=== PATIENT | female | born 1960 | race African-American/Black ===

== ENCOUNTER 2016-10-29 17:43 | Inpatient (IN) | payer BC, MEDICARE ==
[~2016-10-29] VITALS: Ht 162.6 cm; Wt 56.0 kg
--- NOTE | ~2016-10-29 | DS ---
ADMIT: 10/29/2016 RM/LOC: 412 [facility] MR#: [id number] [id number] [facility] [address] [place] [id number] RCIHIE ANTHONY [address] [place] [address] Discharge Summary SEX: F AGE: 56 : 1960 ADMISSION DATE: 10/29/2016 DISCHARGE DATE: 10/30/2016 DISCHARGE DIAGNOSES: 1. Persistent nausea and vomiting. 2. Status post recent kidney transplant. 3. Asthma. 4. Hypertension. 5. Insulin-dependent diabetes mellitus. 6. History of end-stage renal disease. 7. Coronary artery disease. 8. History of gastroparesis. 9. Inflammatory arthritis. 10.Osteoporosis. 11.Depression. HOSPITAL COURSE: The patient was admitted with persistent nausea and vomiting. She actually received some IV fluids and with her IV fluids her nausea did not improve. She was given which IV medications she could be given but otherwise the rest of her medications were given p.o., but she was unable to keep them down. I did contact her transplant video intern, Dr. Hodges, at the [facility] and they requested transfer of the patient. We also gave her a larger dose of IV Solu-Medrol. Her blood sugars were monitored. Overall, the patient was stable throughout her hospital stay but with concern for the persistent nausea it was felt she would be better served being transferred to where she did received her antirejection medications IV. Otherwise, her transfer medications were well summarized in the chart. Allie Anthony MD/ glenn JOB #: [id number] CC: Joss Mcqueen MD, Attending Physician Joss Mcqueen MD, Family Physician
[~2016-10-29 17:43] MED LIST: ASA CHILDREN'S81 MG PO; CARVEDILOL25 MG PO; COLACE-DPS100 MG PO; COMPAZINE DPS5 MG PO; DIFLUCAN DPS200 MG PO; DULERA 100/58.8 GM IH; EXTRANEAL ICO2500 ML; FLONASE 0.05% D16 GM NS; HUMALOG100 UNIT/1 SQ; HUMALOG100 UNIT/3 SQ; KLOR-CON M2020 ME1 PO; LASIX DPS40 MG PO; LEVEMIR100 UNIT/1 SQ; LIPITOR DPS40 MG PO; LIPITOR80 MG PO; NORVASC5 MG PO; PROAIR RESPICL90 MCG IH; REGLAN DPS5 MG PO; SENOKOT DPS8.6 MG PO; TYLENOL DPS325 MG PO; WELLBUTRIN SR150 M1 PO; ZESTRIL DPS20 MG PO; [UNRECOGNIZED DRUG - OTHER] TP; [UNRECOGNIZED DRUG - OTHER] TP
--- NOTE | 2016-10-30 01:41 | ER ---
ADMIT: 10/29/2016 RM/LOC: 412 [facility] MR#: [id number] [address] [address] RICHIE BAKER [address] [place] [address] Emergency Room Report SEX: F AGE: 56 : 1960 DATE: 10/29/2016 CHIEF COMPLAINT: Vomiting. HISTORY OF PRESENT ILLNESS: The patient is a 56-year-old, type 1 diabetic female status post recent kidney transplant at [facility], October 22, discharged on the complaining of acute onset nausea and vomiting in the past 12 hours with at least 13 episodes of vomiting, still making urine. No diarrhea, fevers, chills, or cough. PAST MEDICAL HISTORY: ALLERGIES: PHENERGAN, ZINC, NAPROXEN, DOXYCYCLINE. MEDICATIONS: Please see discharge MAR. ILLNESSES: Nonobstructive coronary artery disease, type 1 diabetes, hypertension, end-stage renal disease, hyperlipidemia. OPERATIONS: Right arm AV fistula, tubal ligation, recent kidney transplant, cataract with intraocular lens implant. REVIEW OF SYSTEMS: A 10-point review of systems is negative for all other systems, illnesses, or operations except as outlined above. SOCIAL HISTORY: . Nonsmoker and nondrinker. No illicit drugs. FAMILY HISTORY: Negative per chart review. PHYSICAL EXAMINATION: VITAL SIGNS: Temperature 97.6, pulse 96, respirations 20, BP 187/44, SaO2 of 99% on room air. GENERAL: Nontoxic, acutely ill-appearing female, actively vomiting, non- diaphoretic. HEENT: Normocephalic. No evidence of epistaxis, rhinorrhea, or otorrhea. NECK: Supple without lymphadenopathy or thyromegaly. CHEST: Clear. Breath sounds equal. HEART: Regular rate and rhythm without murmur, gallop, or edema. ABDOMEN: Right lower quadrant surgical incision dry, minimally tender over transplant site. Bowel sounds hypoactive, nondistended. EXTREMITIES: Right arm AV fistula with thrill noted. Negative Homans sign. NEURO: EOMI. PERRLA. No evidence of drift, dysarthria, or ataxia. GAIT: Normal. NEUROLOGIC: Mental status; alert, oriented, and anxious without delusions, hallucinations, or abnormal thought content. MEDICAL DECISION MAKING: The patient was given a liter of bolus, Zofran 12 mg IV push with relief of nausea and vomiting. Chest x-ray, no acute findings. EKG showed sinus rhythm with prolonged QTc of 506 milliseconds. Hemoglobin 9.1, up from discharge according to [facility] records. Lactic 1.9, glucose 328, ADMIT: 10/29/2016 RM/LOC: 412 [facility] MR#: [id number] [address] [address] SAMUELRICHIE Lora [address] [place] [address] Emergency Room Report SEX: F AGE: 56 : 1960 creatinine 1.4, up from 1.03 on October 27 at the [place]. Troponin 0.051 and procalcitonin 0.08. Alkaline phosphatase 218, down from preop records at [place]. AST 54, up from preop records. UA; greater than 1000 glucose, 2 wbc's, INR 1.06. Discussed findings with Dr. Maciel Hodges, terrazzo laborer at [facility] Transplant Team, who agrees with hydration, close followup. Contact if needed. Notified Dr. Allie baker, who agreed to admit, gave orders to nursing staff. DIAGNOSES: 1. Acute on chronic renal failure with recent kidney transplant. 2. Protracted nausea and vomiting. 3. Type 1 diabetes. 4. Hypertension. 5. Hyperlipidemia. 6. Nonobstructive coronary artery disease. RECOMMENDATION: Admit inpatient telemetry for Dr. Mcqueen. ADMISSION DISCHARGE CONDITION: Improved. CODE STATUS: The patient is a full code. Beto Mahajan MD/ carlos JOB #: [id number] CC: Joss Mcqueen MD, Attending Physician Joss Mcqueen MD, Family Physician Joss Mcqueen MD
[2016-10-31] MEDS ORDERED: [UNRECOGNIZED DRUG - OTHER] PO (20:43)
[2016-10-31] MEDS ORDERED: FIORICET DPS1 TAB PO (20:43)
[2016-10-31] MEDS ORDERED: NILSTAT SUSP DPS5 ML PO (20:44)
[2016-10-31] MEDS ORDERED: NORVASC5 MG PO (20:44)
[2016-10-31] MEDS ORDERED: VALCYTE450 MG PO (20:44)
[2016-10-31] MEDS ORDERED: MYFORTIC180 MG PO (20:44)
[2016-10-31] MEDS ORDERED: PROGRAF1 MG PO (20:44)
[2016-10-31] MEDS ORDERED: DULERA 100/58.8 GM IH (20:45)
[2016-10-31] MEDS ORDERED: HEPARIN5000 UNITS SQ (20:45)
[2016-10-31] MEDS ORDERED: FLONASE 0.05% D16 GM NS (20:45)
[2016-10-31] MEDS ORDERED: SENOKOT S1 TAB PO (20:45)
[2016-10-31] MEDS ORDERED: LEVEMIR100 UNIT/1 SQ (20:46)
[2016-10-31] MEDS ORDERED: [UNRECOGNIZED DRUG - OTHER] IV (20:47)
[2016-10-31] MEDS ORDERED: NOVOLOG FL100 UNIT/1 SQ (20:47)
[2016-10-31] MEDS ORDERED: [UNRECOGNIZED DRUG - OTHER] IV (20:48)
[2016-10-31] MEDS ORDERED: LOPRESSOR5 MG/5 ML IV (20:48)
[2016-10-31] MEDS ORDERED: REGLAN INJ10 MG/2 ML IV ×2 (20:49→20:54)
[2016-10-31] MEDS ORDERED: PEPCID DPS10 MG/ML IV (20:49)
[2016-10-31] MEDS ORDERED: NORMAL SALINE FL5 ML IV ×2 (20:49→20:53)
[2016-10-31] MEDS ORDERED: MAALOX DPS30 ML PO (20:50)
[2016-10-31] MEDS ORDERED: SOLU-MEDROL40 MG IV (20:50)
[2016-10-31] MEDS ORDERED: ZOFRAN DPS4 MG/2 ML IV (20:50)
[2016-10-31] MEDS ORDERED: TYLENOL DPS325 MG PO (20:51)
[2016-10-31] MEDS ORDERED: SURFAK DPS240 MG PO (20:51)
[2016-10-31] MEDS ORDERED: OXY IR DPS5 MG PO (20:51)
[2016-10-31] MEDS ORDERED: TYLENOL DP650 MG/20. PO (20:52)
[2016-10-31] MEDS ORDERED: TYLENOL-DPS650 MG PR (20:52)
[2016-10-31] MEDS ORDERED: PROVENTIL HFA6.7 GM IH (20:52)
[2016-10-31] MEDS ORDERED: NITROSTAT0.4 MG SL (20:52)
[2016-10-31] MEDS ORDERED: LORAZEPAM IV (20:53)
[2016-10-31] MEDS ORDERED: SODIUM CHLORID250 ML IV (20:54)
[2016-10-31] MEDS ORDERED: ZOFRAN2 MG/ML IV (20:55)
--- NOTE | 2016-11-16 09:36 | HP ---
ADMIT: 10/29/2016 RM/LOC: 412 [facility] MR#: [id number] [address] [phone] RICHIE ANTHONY [address] [place] [address] History and Physical SEX: F AGE: 56 : 1960 DATE OF SERVICE: 10/29/2016 HISTORY OF PRESENT ILLNESS: A 56-year-old female with past medical history of insulin-dependent type 2 diabetes, end-stage renal disease, coronary artery disease, hypertension, and gastroparesis, who presents with persistent nausea and vomiting following a recent right kidney transplant. The patient recently underwent right kidney transplant for end-stage renal disease, on October 22. Her surgery was uncomplicated and went well. Postsurgical course was uncomplicated. She was discharged from the [facility] in [place] on October 27. Following discharge, she has been taking her antirejection and prophylactic medications as prescribed this morning. She notes the onset of nausea and vomiting. She has been persistently nauseous and vomiting throughout the entire day and unable to keep down any oral intake. She feels dehydrated. She is unable to keep her medications down. She denies any significant pain. She describes the vomit as a brown, nonbilious, nonbloody emesis. She denies abdominal pain, pain around the incision site, or diarrhea. She does feel fatigued, but denies lightheadedness. She denies chest pains or heart palpitations. She denies fevers, chills, or night sweats. PAST MEDICAL HISTORY: Insulin-dependent type 2 diabetes, hypertension, coronary artery disease, end-stage renal disease, and gastroparesis. MEDICATIONS: 1. Mycophenolate 720 mg twice daily. 2. Prednisone 20 mg daily. 3. Tacrolimus 7 mg twice daily. 4. TMP-sulfa 400/80 mg daily. 5. Valganciclovir 450 mg daily. 6. Hydralazine 50 mg three times daily. 7. Carvedilol 25 mg twice daily. 8. Aspirin 81 mg daily. 9. Amlodipine 10 mg daily. 10.Atorvastatin 80 mg daily. 11.Ranitidine 150 mg nightly. 12.Albuterol 90 mcg. 13.Mometasone formoterol 100-5 mcg twice daily. 14.Insulin glargine 15 units every morning. 15.Insulin lispro, level 2 sliding scale. REVIEW OF SYSTEMS: A complete review of systems was obtained and is negative unless noted in the HPI. PHYSICAL EXAMINATION: VITAL SIGNS: Afebrile. Blood pressure 170s/80s, heart rate 80s, respiratory rate 16, and pulse oximetry 100% on room air. GENERAL: Appears fatigued and tired, no acute distress. Lying in bed, cooperative. HEENT: Extraocular movements intact. Pupils equally reactive bilaterally. ADMIT: 10/29/2016 RM/LOC: 412 [facility] MR#: [id number] [address] [place] [id number] RICHIE ANTHONY [address] [place] [address] History and Physical SEX: F AGE: 56 : 1960 Mucous membranes are dry. No scleral icterus noted. CARDIAC: Regular rate and rhythm. No murmurs, rubs, or gallops. LUNGS: Clear to auscultation bilaterally with reduced breath sounds at the bases. No wheezes or crackles noted. ABDOMEN: Soft, nontender, and nondistended. Right lower quadrant incision scar healing well, it is clean and dry. There is no surrounding erythema. No drainage from the incision. Bowel sounds are active. EXTREMITIES: No evidence of lower extremity edema. No rash noted. No tenderness to palpation of the legs. NEUROLOGICAL: No focal deficits. Cranial nerves intact. LABORATORIES AND IMAGING DATA: White blood cell count 7.5, hemoglobin 9.1, and platelets 214. Sodium 142, potassium 4.3, creatinine 1.4, CO2 of 24, phosphorus 2.7, magnesium 1.9, lactic acid 1.9, AST 54, alkaline phosphatase 218, and procalcitonin 0.08. Urinalysis; negative leukocyte esterase, negative nitrites, greater than 1000 glucose. EKG, no ST or T-wave changes consistent with acute coronary syndrome. Normal sinus rhythm. ASSESSMENT AND PLAN: A 56-year-old female with a past medical history of insulin-dependent type 2 diabetes, coronary artery disease, hypertension, and end-stage renal disease, status post right kidney transplant on 10/22, who presents with persistent nausea and vomiting of one day duration, most likely secondary to medication side effect versus flare of gastroparesis. 1. Persistent nausea and vomiting. The patient has received 2 L of IV fluids in the Emergency Department. We will continue IV fluids at 125 mL/h. For nausea, IV Zofran 4 mg every 6 hours p.r.n. and Reglan 10 mg IV every 6 hours p.r.n. Clear liquid diet at this time. 2. End-stage renal disease, status post right kidney transplant. Continue antirejection medication regimen and antibiotic prophylaxis regimen. Kidney function is stable compared to discharge on 10/27 when creatinine was noted to be 1.2, it is currently 1.4. Communication with Dr. Maciel Hodges this evening with Nephrology at the [facility] stating that he agrees with the current treatment plan and does not feel transfer to [facility] is necessary at this time. I advised to pursue IV fluid resuscitation and control of nausea and vomiting. 3. Hypertension. Blood pressure is currently 170s to 180 systolic. The patient states this is where she typically runs. Home regimen consists of carvedilol, hydralazine, and amlodipine. Continue home regimen p.r.n. IV hydralazine 20 mg every 4 hours for blood pressure greater than 180/100. 4. Type 2 diabetes. Continue home insulin regimen at this time. AC and HS glucose checks. Most recent serum glucose of 328 with greater than 1000 glucose on urinalysis. ADMIT: 10/29/2016 RM/LOC: 412 [facility] MR#: [id number] [address] [address] RICHIE ANTHONY [address] [place] [address] History and Physical SEX: F AGE: 56 : 1960 5. Coronary artery disease. Recent preoperative heart catheterization revealed a low grade stenosis of the posterior coronary artery. EKG revealing no acute changes consistent with acute coronary syndrome. Troponin mildly elevated at 0.051. We will repeat one more troponin at 10:30 this evening with EKG. Continue home regimen of aspirin, atorvastatin, and carvedilol. 6. Code status, full code. 7. Diet, clear liquid diet. 8. Deep vein thrombosis prophylaxis. Subcu heparin 5000 units every 8 hours. DISPOSITION: Admit for IV fluid resuscitation and control of nausea and vomiting. Telemetry. Jack Rios MD Resident / Allie Anthony MD / jalenl JOB #: [id number] CC: Joss Mcqueen, Attending Physician Joss Mcqueen, Family Physician
== END 2016-10-30 15:27 | disposition short-term general hospital (02) | DRG 392 ==
LOC: ER 17:43 → 4PCU 20:22
PROVIDERS: ADMIT Internal Medicine
DX: R11.2 Nausea with vomiting, unspecified (principal); E11.22 Type 2 diabetes mellitus with diabetic chronic kidney disease; K31.84 Gastroparesis; E11.43 Type 2 diabetes mellitus with diabetic autonomic (poly)neuropathy; Z94.0 Kidney transplant status; J45.909 Unspecified asthma, uncomplicated; I12.9 Hypertensive chronic kidney disease with stage 1 through stage 4 chronic kidney disease, or unspecified chronic kidney disease; M81.0 Age-related osteoporosis without current pathological fracture; M19.90 Unspecified osteoarthritis, unspecified site; F32.9 Major depressive disorder, single episode, unspecified; I25.10 Atherosclerotic heart disease of native coronary artery without angina pectoris; E78.5 Hyperlipidemia, unspecified; Z79.52 Long term (current) use of systemic steroids; Z79.82 Long term (current) use of aspirin; Z79.4 Long term (current) use of insulin

== ENCOUNTER → 2017-02-14 | Outpatient (CLI) | payer BC, MEDICARE ==
[~2017-02-14] MED LIST changes: +FIORICET DPS1 TAB PO; +HEPARIN5000 UNITS SQ; +LOPRESSOR5 MG/5 ML IV; +LORAZEPAM IV; +MAALOX DPS30 ML PO; +MYFORTIC180 MG PO; +NILSTAT SUSP DPS5 ML PO; +NITROSTAT0.4 MG SL; +NORMAL SALINE FL5 ML IV; +NOVOLOG FL100 UNIT/1 SQ; +OXY IR DPS5 MG PO; +PEPCID DPS10 MG/ML IV; +PROGRAF1 MG PO; +PROVENTIL HFA6.7 GM IH; +REGLAN INJ10 MG/2 ML IV; +SENOKOT S1 TAB PO; +SODIUM CHLORID250 ML IV; +SOLU-MEDROL40 MG IV; +SURFAK DPS240 MG PO; +TYLENOL DP650 MG/20. PO; +TYLENOL-DPS650 MG PR; +VALCYTE450 MG PO; +ZOFRAN DPS4 MG/2 ML IV; +ZOFRAN2 MG/ML IV; +[UNRECOGNIZED DRUG - OTHER] IV; +[UNRECOGNIZED DRUG - OTHER] IV; +[UNRECOGNIZED DRUG - OTHER] PO
== END | disposition home or self-care (01) ==
LOC: RAD.S 13:18
DX: R92.0 Mammographic microcalcification found on diagnostic imaging of breast (principal)